=== PATIENT | female | born 1955 | race Caucasian/White ===

== ENCOUNTER 2022-12-05 10:26 | Outpatient (CLI) | payer MEDICARE, SELFPAY ==
--- NOTE | 2022-12-05 10:45 | CRLHL7_ITS ---
For Patients: As a result of the Century Cures Act, medical imaging exams and procedure reports are released immediately into your electronic medical record. You may view this report before your referring provider. If you have questions, please contact your health care provider. INDICATION: Postmenopausal bleeding COMPARISON: None TECHNIQUE: 2D crabtree scale and color Doppler images were acquired of the pelvis using a transabdominal and transvaginal approach. FINDINGS: Anterior mid uterine fibroid measuring 1.2 x 1.1 x 1.7 cm. Uterus measures 6.9 cm in length by 2.6 cm in AP diameter by 5.1 cm in transverse dimension. The endometrium measures 1.3 cm in thickness. The endometrium is heterogeneous. There is also focal area within the endometrium measuring 9 x 12 x 5 millimeters. The right ovary measures 1.4 x 0.7 x 0.9 cm in size and the left ovary measures 1.9 x 0.7 x 1.1 cm. The ovaries demonstrate normal arterial and venous blood flow on color Doppler analysis. There are no suspicious fluid collections within the cul-de-sac. IMPRESSION: The endometrium is diffusely thickened and heterogeneous measuring up to 1.3 cm. Focal area within the endometrium measuring 9 x 12 x 5 millimeters may represent blood products or polyp. Dictated by Gregory Jay MD @ 12/05/2022 11:45:51 AM (Electronically Signed)
== END 2022-12-05 10:27 | disposition home or self-care (01) ==
LOC: US 10:29
PROVIDERS: PCP Family Medicine; Visit Provider Obstetrics & Gynecology
DX: N95.0 Postmenopausal bleeding (principal); R93.89 Abnormal findings on diagnostic imaging of other specified body structures
CPT/HCPCS: 76830; 76856

== ENCOUNTER 2023-01-05 08:45 | Day surgery (SDC) | payer MEDICARE, SELFPAY ==
--- NOTE | 2023-01-05 09:04 | SUR.PREOP ---
Patient provided home covid negative results to RN.
[2023-01-05 09:08] VITALS: BMI 31.4
[2023-01-05 09:19] VITALS: BP 142/77; PULSE 76; RESP 16; TEMP 37; O2SAT 99
[2023-01-05] MEDS: LACTATED RINGERS 1000 ML 1,000 ML 100 ML IV (09:36)
[2023-01-05] MEDS: SODIUM CHLORIDE 0.9 % (FLUSH) 10 ML SYRINGE IVF (09:36)
[2023-01-05 09:52] LABS: Hemoglobin* 13.9 gm/dL (12.0-16.0)
--- NOTE | 2023-01-05 12:09 | W.ANESCHARGE ---
Anesthesia Charges Start Date/Time Anesthesia Start Date: 01/05/23 Anesthesia Start Time: 11:44 Stop Date/Time Anesthesia Stop Date: 01/05/23 Anesthesia Stop Time: 12:27
[2023-01-05] MEDS: BUPIVACAINE 0.5% 30 ML 20 ML INJECTION (12:11)
[2023-01-05 12:30] VITALS: BP 105/71; PULSE 60; RESP 16; TEMP 37; O2SAT 92
--- NOTE | 2023-01-05 12:31 | W.ANESCHARGE ---
Anesthesia Charges Start Date/Time Anesthesia Start Date: 01/05/23 Anesthesia Start Time: 11:44 Stop Date/Time Anesthesia Stop Date: 01/05/23 Anesthesia Stop Time: 12:27
--- NOTE | 2023-01-05 12:36 | P.GYNPRC_ITS ---
Procedure Note Date Seen: 01/05/23 Procedure Details: Preop diagnosis: Postmenopausal bleeding Postop diagnosis: Postmenopausal bleeding Name of procedure: Hysteroscopy, dilation and curettage Surgeon: Faith Ackerman Office Technology Professor: None Complications: None EBL: 5mL Drains: None Pathology: Endometrial curettings Findings: Speculum exam: vagina with atrophy changes, cervix as well, no gross lesions or abnormal discharge. Intrauterine: Large and long polypoid lesion that looks to have a base at the right cornua. This has multiple calcifications. Otherwise background endometrium looks atrophic. Bilateral cornual openings seen. Patient was taken to the OR were MAC anesthesia was administered without difficulty. She was placed in the dorsal lithotomy position with Stan type stirrups. Patient was then prepared and draped in the normal sterile fashion. A bivalved speculum was inserted in the posterior aspect of the vagina. 0.5% Marcaine was injected at 2 and 11 o'clock a total of about 8mL utilized. A single-tooth tenaculum was used to grasp the anterior lip of the cervix. The uterus was carefully sounded to 8 cm. The cervical os was sequentially dilated to accommodate the 5 mm TrueClear hysteroscope using Hegar dilators. A 5 mm 30 degree TrueClear hysteroscope was introduced under direct visualization, and the uterus was distended with normal saline. Findings as above. Soft tissue incisor blade from TrueClear hysteroscope system was introduced under direct visualization and endometrial curettings performed with removal of polypoid lesions. Hysteroscope removed under direct visualization. Sharp curetting also performed. Tenaculum was removed from the cervix and good hemostasis was noted at puncture sites. Patient tolerated the procedure well. Instrument and sponge counts were correct x2. The patient was awakened from MAC anesthesia and taken to the recovery room in a stable condition. The patient will go home after recovering from anesthesia and meeting all the criteria for discharge. She was given instruction regarding follow-up visit in 2 weeks at [facility] and instructions for pain medication. Fluid deficit: 70mL
[2023-01-05 12:52] VITALS: BP 111/69; PULSE 57; RESP 16; O2SAT 93
[2023-01-05 13:05] VITALS: BP 129/75; PULSE 60; RESP 16; TEMP 37; O2SAT 94
== END 2023-01-05 13:36 | disposition home or self-care (01) ==
PROVIDERS: PCP Family Medicine; Visit Provider Obstetrics & Gynecology
PROC: 0UDB8ZZ Extraction of Endometrium, Via Natural or Artificial Opening Endoscopic (ICD-10-PCS; CPT 58558; principal; 2023-01-05 10:15)
DX: N95.0 Postmenopausal bleeding (principal)
CPT/HCPCS: 58558; 00952; 01965; 36415; 85018; 88305; J1100; J2250; J2405; J2704; J3010; J3490; J7120

== ENCOUNTER 2024-12-08 18:53 | Emergency (ER) | payer MEDICARE, SELFPAY ==
--- OUTSIDE RECORDS SUMMARY | 2024-12-08 18:55 | XMS_ITS | Clinical Summary ---
Author Organization [facility] Address [place], [place] [address] Care Team Providers Care Regional Engagement Consultant Name Role Phone Yuan Beal MD Primary Care Provider Allergies Active Allergy Reactions Criticality Noted Date Comments Cephalexin 01/03/2007 Prednisone 01/03/2007 Sertraline Other - Describe In Comment Field 12/27/2022 Nocturnal palpitations, sweating, after increasing to 50mg from 25mg for one week. Medications ASPIRIN 81 MG TAB take 1 tablet (81mg) by oral route once daily 0 Active amLODIPine (NORVASC) 10 mg tabletIndications :Essential hypertension Take 1 Tablet (10 mg) by mouth once daily. 90 Tablet 2 02/28/2024 Active lisinopriL (PRINIVIL; ZESTRIL) 20 mg tabletIndications :Essential hypertension Take 1 Tablet (20 mg) by mouth once daily. 90 Tablet 2 02/28/2024 Active metoprolol tartrate (LOPRESSOR) 25 mg tabletIndications :Benign essential HTN Take 1 Tablet (25 mg) by mouth two times daily. 180 Tablet 2 02/28/2024 Active Active Problems Problem Noted Date Diagnosed Date Hyperlipidemia 11/29/2023 Anxiety 11/22/2022 Overweight 11/03/2020 Impaired fasting glucose 05/05/2015 Unspecified essential hypertension 01/03/2007 Esophageal reflux 01/03/2007 Resolved Problems Problem Noted Date Diagnosed Date Resolved Date Vitamin D insufficiency 05/05/2015 02/0 04/2024 Routine general medical exam ination at a health care facility 06/04/2009 10/30/2019 Overview (06/04/2009): Lipids - 03/27/08, cholesterol - 151, LDL - 84, TG - 45 Dexa- none mammo-03/2008 Colon - none found Pap/pelvic -03/06/08 Thyroid- none found Hep B-none Tetanus-02/15/07 Diabetic-no Mitral valve disorders 01/03/200711/22 Overview (01/03/2007): dental proph Other abnormal glucose 01/03/200711/03 Acute venous embolism and th rombosis of unspecified deep vessels of lower extremity 01/03/2007 11/03/2020 Overview (01/03/2007): on ocp at age 19 Immunizations Name Administration Dates Next Due Amb Influenza, Inactivated A IIV4 (Age 65+ Years) Preserv Free 08/17/2020 Influenza A (H1N1), Inactiva brea (Age >=3 Years) 08/24/2009 Influenza RIV4 (Age 18+ Year s) PRESERV FREE 08/14/2019 Influenza Virus, Unspecified 01/21/2015 Influenza, IIV3 (Age 6-35 mos) 8,08/13/2013,08/03/2012,2010,07/28/2010 Influenza, IIV3 (Age >=3 years) 08/16/2016,08/03,07/22/2011 Influenza, IIV4 08/14/2017,08/16/2016,08/13/2015 Influenza, Inactivated AIIV4 (Age 65+ Years) Preserv Free 11/29/2023,11/22/2022,11/18/2021 Influenza, Whole Virus 08/20/2014 Pneumococcal Poly,23-Valent (Pneumovax) 11/03/2020 Pneumococcal conj 13-Valent (Prevnar 13) 11/18/2021 Tdap 08/03/2012,02/15/2007 Family History Medical History Relation Name Comments Other Father bladder, prost, renal cancer, degenerative disc disease in neck Cancer Maternal Aunt great aunt,ova luz elena Osteoporosis Maternal Grandfather Hypertension Mother Stroke Mother Heart Disease Other cousin of mi (presumed) at age45 Cancer-breast Paternal Grandmother Anesthesia Problem No Family History Relation Name Status Comments Father Alive Maternal Aunt Maternal Grandfather Mother Other Paternal Grandmother Social History Tobacco Use Types Packs/Day Years Used Date Smoking Tobacco: Never Smokeless Tobacco: Never Tobacco Cessation:Counseling Given: No Alcohol Use Standard Drinks/Week Comments Yes 2 (1 standard drink = 0.6 oz pur e alcohol) PHQ-2 Answer Date Recorded PHQ-2 TOTAL SCORE 0 11/29/2023 Social Connections Answer Date Recorded Do you often feel lonely or isolated from those around you? 0 11/29/2023 Financial Resource Strain Answer Date R ecorded Difficulty of Paying Living Expenses 3 11/29/2023 Difficulty of Paying Living Expenses Not on file 11/29/2023 Food Insecurity Answer Date Recorded Do you worry your food will run out before you are able to buy more? 1 11/29/2023 Transportation Needs Answer Date Record ed Does lack of transportation keep you from medica l appointments? 1 11/29/2023 Does lack of transportation keep you from work, meetings or getting things that you need? 1 11/29/2023 Housing Stability Answer Date Recorded What is your housing situation today? 1 11/29/2023 Utilities Answer Date Recorded Do you have trouble paying f or utilities (for example, heat, electricity, water, phone)? 1 11/29/2023 Comments No Sex and Gender Information Value Date Recorded Sex Assigned at Not on file Legal Sex Female 5:21 AM DESKTOP ARCHITECT Gender Identity Not on file Sexual Orientation Not on file Obstetrics History Last Filed Vital Signs Vital Sign Reading Time Taken Comments Blood Pressure 162/80 11/29/2023 10:17 AM DESKTOP ARCHITECT Pulse 72 11/29/2023 9:58 AM DESKTOP ARCHITECT Temperature 36.8 C (98.2 F) 10/30/2019 1:04 PM DESKTOP ARCHITECT Respiratory Rate - - Oxygen Saturation 97% 11/29/2023 9:58 AM DESKTOP ARCHITECT Inhaled Oxygen Concentration - - Weight 68.6 kg (151 lb 3.2 oz) 11/29/2023 9:58 A M DESKTOP ARCHITECT Height 158.2 cm (5' 2.28) 11/29/2023 9:58 AM CS T Body Mass Index 27.4 11/29/2023 9:58 AM DESKTOP ARCHITECT Plan of Treatment Health Maintenance Due Date Last Done Comments Zoster (shingles) series for age 50+ (1 of 2) 2005 Fecal testing non-DNA (FIT,FOBT,iFOBT) for age 45-75 02/07/2017 02/08/2016, 08/25/2011 DEXA/DXA scan for age 65+ 2020 Tetanus booster 08/03/2022 08/03/2012, 02/15/2007 Mammogram for age 45-75 11/15/2023 11/15/19 23, 10/02/2014, 09/07/2011, Additional history exists COVID-19 vaccine series ( season) 2024 01/04/2022, 08/05/2021, 06/22/2021 Influenza for age 65+ 06/23/2024 11/29/2023 , 11/22/2022, 11/18/2021, Additional history exists BMI (ht and wt on same day) for age 18+ 11/29/2024 11/29/2023, 12/27/2022, 11/22/2022, Additional history exists Depression screening for age 12+ 11/29/2024 11/29/2023, 11/22/2022, 11/18/2021, Additional history exists Medicare Wellness for age 65+ 11/29/2024, 11/22/2022, 11/18/2021, Additional history exists Lipids for age 45-75 11/29/2028 11/29/2023, 11/22/2022, 11/18/2021, Additional history exists RSV vaccine for adults or (1 - 1-dose 75+ series) 2030 Tdap Completed 08/03/2012, 02/15/2007 Hepatitis C screening for ag e 18-79 Completed 11/18/2021 Pneumococcal series for age 50+ Completed , 11/03/2020 Procedures Procedure Name Priority Date/Time Associated Diagnosis Comments LIPID PANEL W REFLEX MEASURED LDL Routine 11/29/2023 10:35 AM DESKTOP ARCHITECT Hyperlipidemia, unspecified hyperlipidemia type XR MAMMO BILAT SCREENING Routine 11/15/2022 10:12 AM DESKTOP ARCHITECT Visit for screening mammogram ANTI HCV Routine 11/18/2021 2:47 PM DESKTOP ARCHITECT Need for hepatitis C screening test OCCULT BLOOD IFOBT STOOL Routine 02/08/2016 9:31 AM CDT Colon cancer screening from Last 3 Months or Most Recently Relevant to Health Maintenance Results * LIPID PANEL W REFLEX MEASURED LDL (11/29/2023 10:35 AM DESKTOP ARCHITECT) CHOLESTEROL,TOTAL 194 100 - 199 mg/dL 11/29/2023 5:57 PM DESKTOP ARCHITECT [facility] Comment: Cholesterol, Total Reference Ranges Desirable <200 mg/dL Borderline 200-239 mg/dL High >=240 mg/dL TRIGLYCERIDES 59 <150 mg/dL 11/29/2023 5:57 PM DESKTOP ARCHITECT [facility] HDL CHOLESTEROL 83 >40 mg/dL 5:57 PM DESKTOP ARCHITECT [facility] NON-HDL CHOLESTEROL 111 <145 mg/dl 11/29/2023 5:57 PM DESKTOP ARCHITECT [facility] CHOL/HDL RATIO 2.34 <4.50 11/29/2023 5:57 PM DESKTOP ARCHITECT [facility] LDL CHOLESTEROL 99 <=130 mg/dL 11/29/2023 5:57 PM DESKTOP ARCHITECT [facility] VLDL CHOLESTEROL 12 <=30 mg/dL 11/29/2023 5:57 PM DESKTOP ARCHITECT [facility] PROVIDER ORDERED STATUS RANDOM 11/29/2023 5:57 PM DESKTOP ARCHITECT [facility] Blood BLOOD SPECIMEN / Unknown Venipuncture / Unknown 11/29/2023 10:35 AM DESKTOP ARCHITECT 11/29/2023 10:36 AM DESKTOP ARCHITECT us Yuan Beal MD CHEMISTRY Final Result [facility] [address] [place] [address], * XR MAMMO BILAT SCREENING (11/15/2022 10:12 AM DESKTOP ARCHITECT) Anatomical Region Laterality Modality BREASTS, Breast Left, Breast Right Bilateral Mammography Impressions 11/17/2022 3:47 PM DESKTOP ARCHITECT There is no radiographic evidence for malignancy. Recommend annual mammograms. MAMMOGRAM ASSESSMENT: ACR 1 Negative PATIENTS: You will also receive a letter with your examination results in an easy to read format. If you have questions about your results, please contact your referring provider. Narrative 11/17/2022 3:47 PM DESKTOP ARCHITECT For Patients: As a result of the Century Cures Act, medical imaging exams and procedure reports are released immediately into your electronic medical record. You may view this report before your referring provider. If you have questions, please contact your health care provider. XR MAMMO BILAT SCREENING [[id number]] CLINICAL HISTORY: This is an asymptomatic 67 y.o. patient. INDICATION FOR EXAM: Mammogram Screening. TECHNIQUE: CC & MLO views were obtained. This study was evaluated with the assistance of Computer-Aided Detection. COMPARISON FILM: Yes 10/02/14 Outside Facility 04/18/13 Outside Facility FINDINGS: The breasts have scattered areas of fibroglandular density. There are no dominant masses, suspicious micro calcifications or areas of architectural distortion. Yuan Beal MD MAMMO Final Result * ANTI HCV (11/18/2021 2:47 PM DESKTOP ARCHITECT) Pathologist [facility] HEPATITIS C ANTIBODY Non-React janelle Non-React janelle 11/19/2021 4:04 PM DESKTOP ARCHITECT [facility] Comment:Antibodies to HCV no t detected; does not exclude the possibility of exposure to HCV. Blood BLOOD SPECIMEN / Unknown Venipuncture / Unknown 11/18/2021 2:47 PM DESKTOP ARCHITECT 11/18/2021 2:48 PM DESKTOP ARCHITECT Yuan Beal MD SEND OUTS Final Result [facility] [address] [place] [address], * OCCULT BLOOD IFOBT STOOL (02/08/2016 9:31 AM CDT) Pathologist [facility] STOOL BLOOD ,IFOBT Negative Negative, Invalid 02/08/2016 9:53 AM CDT [facility] Stool specimen (specimen) STOOL SPECIMEN / Unknown Non-Blood / Unknown 02/08/2016 9:31 AM CDT 02/08/2016 9:31 AM CDT Yuan Beal MD LABORATORY Final Result [facility] [address] [place] [address], from Last 3 Months or Most Recently Relevant to Health Maintenance Insurance [employer]AGE MR Care Teams Regional Engagement Consultant Relationship Specialty Start Date End Date Yuan Beal MD [address] [place] [address] PCP - General 01/24/07
[2024-12-08 19:20] VITALS: BP 135/74; PULSE 99; RESP 18; TEMP 36.8; O2SAT 99; BMI 28.7
--- NOTE | 2024-12-08 20:46 | CRLHL7_ITS ---
For Patients: As a result of the Century Cures Act, medical imaging exams and procedure reports are released immediately into your electronic medical record. You may view this report before your referring provider. If you have questions, please contact your health care provider. INDICATION: Constipation. FINDINGS: There is large amount stool within the rectum. There is moderate stool within the ascending colon. There is an air distended loop of small bowel in the left upper quadrant. The lung bases are clear. IMPRESSION: Large amount stool within the rectum. Nonspecific dilated small bowel loop in the left upper quadrant. Dictated by Thaddeus Velez MD @ 12/08/2024 9:40:40 PM (Electronically Signed)
[2024-12-08] MEDS: DOCUSATE SODIUM/BENZOCAINE 5 ML ENEMA PR (21:20)
--- OUTSIDE RECORDS SUMMARY | 2024-12-08 21:20 | XMS_ITS | Clinical Summary ---
Author Organization [facility] [facility] Address [place], [place] [address] Care Team Providers Care Skein Yarn Dyer Name Role Phone Yuan Beal MD Primary [...] on file Legal Sex Female 5:21 AM NIGHTMAN Gender Identity Not on file Sexual Orientation Not on file Obstetrics History Last Filed Vital Signs Vital Sign Reading Time Taken Comments Blood Pressure 162/80 11/29/2023 10:17 AM NIGHTMAN Pulse 72 11/29/2023 9:58 AM NIGHTMAN Temperature 36.8 C (98.2 F) 10/30/2019 1:04 PM NIGHTMAN Respiratory Rate - - Oxygen Saturation 97% 11/29/2023 9:58 AM NIGHTMAN Inhaled Oxygen Concentration - - Weight 68.6 kg (151 lb 3.2 oz) 11/29/2023 9:58 A M NIGHTMAN Height 158.2 cm (5' 2.28) 11/29/2023 9:58 AM CS T Body Mass Index 27.4 11/29/2023 9:58 AM NIGHTMAN Plan of Treatment Health Maintenance Due Date [...] REFLEX MEASURED LDL Routine 11/29/2023 10:35 AM NIGHTMAN Hyperlipidemia, unspecified hyperlipidemia type XR MAMMO BILAT SCREENING Routine 11/15/2022 10:12 AM NIGHTMAN Visit for screening mammogram ANTI HCV Routine 11/18/2021 2:47 PM NIGHTMAN Need for hepatitis C screening test OCCULT BLOOD IFOBT STOOL Routine 02/08/2016 9:31 AM CDT Colon cancer screening from Last 3 Months or Most Recently Relevant to Health Maintenance Results * LIPID PANEL W REFLEX MEASURED LDL (11/29/2023 10:35 AM NIGHTMAN) CHOLESTEROL,TOTAL 194 100 - 199 mg/dL 11/29/2023 5:57 PM NIGHTMAN [facility] Comment: Cholesterol, Total Reference Ranges Desirable <200 mg/dL Borderline 200-239 mg/dL High >=240 mg/dL TRIGLYCERIDES 59 <150 mg/dL 11/29/2023 5:57 PM NIGHTMAN [facility] HDL CHOLESTEROL 83 >40 mg/dL 5:57 PM NIGHTMAN [facility] NON-HDL CHOLESTEROL 111 <145 mg/dl 11/29/2023 5:57 PM NIGHTMAN [facility] CHOL/HDL RATIO 2.34 <4.50 11/29/2023 5:57 PM NIGHTMAN [facility] LDL CHOLESTEROL 99 <=130 mg/dL 11/29/2023 5:57 PM NIGHTMAN [facility] VLDL CHOLESTEROL 12 <=30 mg/dL 11/29/2023 5:57 PM NIGHTMAN [facility] PROVIDER ORDERED STATUS RANDOM 11/29/2023 5:57 PM NIGHTMAN [facility] Blood BLOOD SPECIMEN / Unknown Venipuncture / Unknown 11/29/2023 10:35 AM NIGHTMAN 11/29/2023 10:36 AM NIGHTMAN us Yuan Beal MD CHEMISTRY Final Result [facility] [address] [place] [address], * XR MAMMO BILAT SCREENING (11/15/2022 10:12 AM NIGHTMAN) Anatomical Region Laterality Modality BREASTS, Breast Left, Breast Right Bilateral Mammography Impressions 11/17/2022 3:47 PM NIGHTMAN There is no radiographic evidence for malignancy. Recommend annual mammograms. MAMMOGRAM ASSESSMENT: ACR 1 Negative PATIENTS: You will also receive a letter with your examination results in an easy to read format. If you have questions about your results, please contact your referring provider. Narrative 11/17/2022 3:47 PM NIGHTMAN For Patients: As a result of the Century Cures Act, medical imaging exams and procedure reports are released immediately into your electronic medical record. You may view this report before your referring provider. If you have questions, please contact your health care provider. XR MAMMO BILAT SCREENING [[id number]] CLINICAL HISTORY: This is an asymptomatic 67 [...] Result * ANTI HCV (11/18/2021 2:47 PM NIGHTMAN) Pathologist [facility] HEPATITIS C ANTIBODY Non-React janelle Non-React janelle 11/19/2021 4:04 PM NIGHTMAN [facility] Comment:Antibodies to HCV no t detected; does not exclude the possibility of exposure to HCV. Blood BLOOD SPECIMEN / Unknown Venipuncture / Unknown 11/18/2021 2:47 PM NIGHTMAN 11/18/2021 2:48 PM NIGHTMAN Yuan Beal MD SEND OUTS Final Result [facility] [address] [place] [address], * OCCULT BLOOD IFOBT STOOL (02/08/2016 9:31 AM CDT) Pathologist [facility] STOOL BLOOD ,IFOBT Negative Negative, Invalid 02/08/2016 9:53 AM CDT [facility] Stool specimen (specimen) STOOL SPECIMEN / Unknown Non-Blood / Unknown 02/08/2016 9:31 AM CDT 02/08/2016 9:31 AM CDT Yuan Beal MD LABORATORY Final Result [facility] [address] [place] [address], from Last 3 Months or Most Recently Relevant to Health Maintenance Insurance [employer]AGE MR Care Teams Skein Yarn Dyer Relationship Specialty Start Date End Date Yuan Beal MD [address] [place] [address] PCP - General 01/24/07
[2024-12-08 21:46] VITALS: BP 128/78; PULSE 85; RESP 18; TEMP 36.8; O2SAT 99
--- NOTE | 2024-12-09 | ED_ITS ---
HPI - Abdominal Pain General Date Seen: 12/09/24 Chief Complaint: Unspecified Complaint, Adult Stated Complaint: Colon Blockage Time Seen by Provider: 12/08/24 20:24 Source: patient Mode of arrival: ambulatory Limitations: no limitations History of Present Illness HPI narrative: This very nice lady presents here with a history of constipation for the last 2 days , she has no history of nausea vomiting, she has a little bit of stool coming out, but worries that she has a bit of a stool ball down below she has no history of constipation significantly in the past denies any blood in it, no history of weight loss malignancy, she does not have a history of colonoscopies but she does the fecal DNA test, and they have always come back normal. She denies any significant abdominal pain with this Related Data Home Medications ?Medication ?Instructions ?Recorded ?Confirmed amlodipine 10 mg tablet 10 mg PO QDAY 12/09/22 12/08/24 aspirin 81 mg tablet,delayed 81 mg PO QDAY 12/09/22 12/08/24 release (Adult Low Dose Aspirin) lisinopril 20 mg tablet 20 mg PO QDAY 12/09/22 12/08/24 metoprolol tartrate 25 mg tablet 25 mg PO BID 01/03/23 12/08/24 Allergies Allergy/AdvReac Type Severity Reaction Status Date / Time prednisone Allergy Intermediate manic Verified 12/08/24 19:23 sertraline Allergy Intermediate heart Verified 12/08/24 19:23 raced, night sweats cephalexin (From Keflex) Allergy pains in Verified 12/08/24 19:23 legs Sulfa (Sulfonamide AdvReac Intermediate Anxiety Verified 12/08/24 19:23 Antibiotics) Review of Systems Status of ROS Reports: 10 or more systems reviewed and unremarkable except as noted in History and below [facility] Medical History Overweight ?E66.3 - Overweight (ICD-10) Vitamin D insufficiency ?E55.9 - Vitamin D deficiency, unspecified (ICD-10) Impaired fasting glucose ?R73.01 - Impaired fasting glucose (ICD-10) DVT (deep venous thrombosis) ?I82.409 - Acute embolism and thrombosis of unspecified deep veins of unspecified lower extremity (ICD-10) GERD (gastroesophageal reflux disease) ?K21.9 - Gastro-esophageal reflux disease without esophagitis (ICD-10) Hypertension ?I10 - Essential (primary) hypertension (ICD-10) Surgical History Hx of hernia repair ?Z98.890 - Other specified postprocedural states (ICD-10) ?Z87.19 - Personal history of other diseases of the digestive system (ICD-10) Social History Smoking Status: Never smoker Second hand tobacco smoke exposure: No How often do you have a drink containing alcohol: 2-3 times a week Alcohol type: wine How many standard drinks containing alcohol do you have on a typical day: 1 or 2 How often do you have six or more drinks on one occasion: Never AUDIT-C Alcohol total score: 3 Non-prescribed substance use: denies use Caffeine: Yes (coffee(couple times/week) Are you using contraception or practicing any form of control: No Exam Narrative: Exam Narrative: With a nurse present, her abdominal exam is normal there is no tenderness to palpation her bowel sounds are normal, I was able to do a rectal exam, this showed evidence of a stool ball which I was able to break up, we did give her an enema with excellent returns she felt a lot better Const: Vital Signs, click to edit/add: Vital Signs - 24 hr 12/08/24 19:20 12/08/24 21:46 12/08/24 21:46 Temperature 98.2 F 98.2 F 98.2 F Pulse Rate [Right Pulse Oximeter] 99 85 85 Respiratory Rate 18 18 18 Blood Pressure [Ri ght Upper Arm] 135/74 128/78 128/78 Pulse Oximetry 99 99 Oxygen Delivery Me thod Room Air Room Air Documenting provider has reviewed patient's vital signs: yes Course Vital Signs Vital signs: Initial Vital Signs Temperature 98.2 F 12/08/24 19:20 Temperature Source Temporal Artery Scan 12/08/24 19:20 Pulse Rate 99 12/08/24 19:20 Respiratory Rate 18 12/08/24 19:20 Blood Pressure 135/74 12/08/24 19:20 Blood Pressure Mean 94 12/08/24 19:20 Blood Pressure Position Sitting 12/08/24 19:20 Pulse Oximetry 99 12/08/24 19:20 Oxygen Delivery Method Room Air 12/08/24 19:20 Vital Signs Temperature 98.2 F 12/08/24 19:20 Pulse Rate 99 12/08/24 19:20 Respiratory Rate 18 12/08/24 19:20 Blood Pressure 135/74 12/08/24 19:20 Pulse Oximetry 99 12/08/24 19:20 Oxygen Delivery Method Room Air 12/08/24 19:20 Temperature 98.2 F 12/08/24 21:46 Pulse Rate 85 12/08/24 21:46 Respiratory Rate 18 12/08/24 21:46 Blood Pressure 128/78 12/08/24 21:46 Pulse Oximetry 99 12/08/24 21:46 Oxygen Delivery Method Room Air 12/08/24 21:46 Medications Administered Medications: Discontinued Medications Generic Name Dose Route Start Last Admin Trade Name Freq PRN Reason Stop Dose Admin Docusate Sodium/Benzocaine 5 ml 12/08/24 21:17 12/08/24 21:20 Docusate Sodium/Benzocaine 5 Ml Enema IA 12/08/24 21:18 5 ml ONCE ONE Administration MDM - Abdominal Pain MDM Narrative Medical decision making narrative: During the evaluation of this patient I considered multiple differential diagnosis including life-threatening differentials which are appendicitis, aortic aneurysm, mesenteric ischemia, bowel perforation, ectopic , volvulus and bowel obstruction, other differential diagnosis include but are not limited to inflammatory bowel disease, cholecystitis, pancreatitis, hepatitis, gastritis, GERD, diverticulitis, peptic ulcer disease, pyelonephritis/UTI, renal colic/stone, pelvic inflammatory disease, cervicitis, endometritis, intrauterine , dysfunctional uterine bleeding, ovarian cyst/torsion, spontaneous as well as other etiologies I think this is just simple constipation, I would like her to use some MiraLax for the next couple days she had good returns from her treatment here. Follow- up of ongoing symptoms signs or symptoms or if the constipation rid turns and I would strongly suggest a colonoscopy Medical Records Attestation: I reviewed the patient's medical records. Imaging Data Abdominal one view: Attestation: I have reviewed the pertinent imaging results. My impression: No acute change Radiologist's impression: [address] [address] Diagnostic Imaging Report Patient: Quyen Sanches MR#: [id number] : 1955 Acct:[id number] Loc: ED Service Date: 12/08/[address]: Ordering Physician: Jason Myers M.D. Date of Service: 12/08/24 Procedure(s): XR abdomen 1V Accession Number(s): [id number] cc: Yuan Beal M.D.; Jason Myers M.D.~ For Patients: As a result of the Cures Act, medical imaging exams and procedure reports are released immediately into your electronic medical record. You may view this report before your referring provider. If you have questions, please contact your health care provider. INDICATION: Constipation. FINDINGS: There is large amount stool within the rectum. There is moderate stool within the ascending colon. There is an air distended loop of small bowel in the left upper quadrant. The lung bases are clear. IMPRESSION: Large amount stool within the rectum. Nonspecific dilated small bowel loop in the left upper quadrant. Dictated by Thaddeus Velez MD @ 12/08/2024 9:40:40 PM (Electronically Signed) Discharge Plan Discharge Clinical Impression: Acute constipation Patient Disposition: Home, Self-Care Condition: Improved Instructions: Constipation (ED) Additional Instructions: home,rest and use of the miralax daily for the next 4 days, 1 capful with 20 0z of water. If becomes on ongoing problem then colonoscopy is suggested. Activity Level: Light activity Discharge Diet: Regular Prescriptions: No Action lisinopril 20 mg tablet 20 mg PO QDAY aspirin [Adult Low Dose Aspirin] 81 mg tablet,delayed release (DR/EC) 81 mg PO QDAY amlodipine 10 mg tablet 10 mg PO QDAY metoprolol tartrate 25 mg tablet 25 mg PO BID Follow Up/Referrals: Yuan Beal MD [Primary Care Provider] - Stand Alone Forms: [employer] [facility] Info Instructions
== END 2024-12-08 21:48 | disposition home or self-care (01) ==
PROVIDERS: Emergency Provider Family Medicine; PCP Family Medicine
DX: K59.00 Constipation, unspecified (principal)
CPT/HCPCS: 74018; 99283; A9270